=== PATIENT | female | born 1995 | race Caucasian/White ===

== ENCOUNTER 2018-10-11 05:16 | Day surgery (SDC) | payer MEDICAID ==
[2018-10-09 13:54] LABS: CLARITY,URINE CLEAR (Clear); COLOR,URINE YELLOW (Yellow); GLUCOSE, URINE NEGATIVE (Neg); KETONES,URINE NEGATIVE (Neg); LEUKOCYTE ESTERASE ,URINE SMALL (Neg); NITRITES, URINE NEGATIVE (Neg); OCCULT BLOOD,URINE MODERATE (Neg); PH,URINE 7.5 (4.8-8.0); PROTEIN,URINE NEGATIVE (Neg)
[2018-10-09 13:55] LABS: BASOPHILS # (AUTO) 0.1 X10'3 (0-0.2); EOSINOPHILS # (AUTO) 0.2 X10'3 (0-0.9); LYMPHOCYTES # (AUTO) 1.8 X10'3 (1.1-4.8); MONOCYTES # (AUTO) 0.4 X10'3 (0-0.9)
[2018-10-09 13:56] LABS: EOSINOPHILS % (AUTO) 3.8 % (0-6); LYMPHOCYTES % (AUTO) 33.8 % (21-51); MEAN CORPUSCULAR HEMOGLOBIN 24.4 PG (27.0-31.0); MEAN CORPUSCULAR VOLUME 76.3 FL (78-98); MEAN PLATELET VOLUME 10.6 FL (7.4-10.4); MONOCYTES % (AUTO) 7.6 % (2-12); NEUTROPHILS # (AUTO) 2.9 X10'3 (1.8-7.7); NEUTROPHILS % (AUTO) 52.8 % (42-75); PRE OP HEMATOCRIT 41.9 % (35.0-45.0); PRE OP HEMOGLOBIN 13.4 g/dL (12.0-16.0); PRE OP PLATELET COUNT 242 X10'3 (140-440); RED BLOOD COUNT 5.49 X10'6 (4.20-5.60); RED CELL DISTRIBUTION WIDTH 16.5 % (11.5-14.5)
[2018-10-09 13:56] LABS: UA COLLECTION TYPE CLN CATCH MIDSTREAM
[2018-10-09 14:01] LABS: ALBUMIN 4.2 G/DL (3.4-5.0); ALBUMIN/GLOBULIN RATIO 1.1 (1.1-1.5); ALKALINE PHOSPHATASE 106 IU/L (46-116); BLOOD UREA NITROGEN 12 MG/DL (7-18); BUN/CREATININE RATIO 16.4 (6.6-38.0); CALCIUM 9.4 MG/DL (8.5-10.1); CHLORIDE 103 MMOL/L (99-107); CREATININE 0.73 MG/DL (0.40-0.90); PRE OP ALT 19 U/L (30-65); PRE OP ANION GAP 10 (8-16); PRE OP AST 12 U/L (10-37); PRE OP BILIRUB, TOTAL 0.5 MG/DL (0.0-1.0); PRE OP GLUCOSE 87 MG/DL (70-104); PRE OP POTASSIUM 3.9 MMOL/L (3.4-5.1); PRE OP SODIUM 137 MMOL/L (135-145); TOTAL CARBON DIOXIDE 24.2 MMOL/L (24-32); eGFR > 90 ML/MIN
[2018-10-09 14:08] LABS: BACTERIA,URINE 4+ /HPF (Neg); RBC,URINE 0-2 /HPF (0-2); SQUAMOUS EPITHELIAL CELL,UR MANY /LPF (FEW); WBC,URINE 0-4 /HPF (0-4)
[2018-10-09 14:15] LABS: HCG SERUM QL NEGATIVE
[2018-10-09 14:33] LABS: ANISOCYTOSIS 1+; LARGE PLATELETS FEW; MICROCYTOSIS 1+; PLATELET ESTIMATE NORMAL
[2018-10-11] VITALS (10 sets, daily range): BP systolic 118–154; BP diastolic 72–86
[~2018-10-11] VITALS: Ht 170.2 cm; Wt 77.0 kg
[~2018-10-11 05:16] MED LIST: NO HOME MEDS
[2018-10-11] MEDS ORDERED: famotidine 20mg tablet PO ONE (05:30)
[2018-10-11] MEDS ORDERED: VANCOMYCIN INJ 1000 MG in NORMAL SALINE 250ml IV.SOLN IV ONE (05:30)
[2018-10-11] MEDS ORDERED: gentamicin inj 300 MG in normal saline 100ml IV soln 92.5 ML IV ONE (05:30)
[2018-10-11] MEDS ORDERED: ringers solution, lacted 1,000 ML IV SCH ×2 (05:30→07:54)
[2018-10-11] MEDS ORDERED: albuterol 2.5 MG/3 ML nebule NEB ONE (05:30)
[2018-10-11] MEDS ORDERED: LIDOcaine 1% (10mg/ml) 2ml vial ONE (06:17)
[2018-10-11] MEDS ORDERED: sevoflurane 250ml liquid IH ONE (07:16)
[2018-10-11] MEDS ORDERED: acetaminophen 1000 MG/100ml vial IV ONE (07:16)
[2018-10-11] MEDS ORDERED: propofol inj 20 ML IV ONE (07:18)
[2018-10-11] MEDS ORDERED: fentaNYL/PF 50MCG/1 ML 2ML syringe ONE (07:18)
[2018-10-11] MEDS ORDERED: midazolam 2 mg/2 ml injection ONE (07:18)
[2018-10-11] MEDS ORDERED: rocuronium 10mg/ml inj IV ONE (07:18)
[2018-10-11] MEDS ORDERED: dexamethasone sod phosphate 4mg/ml inj. ONE (07:31)
[2018-10-11] MEDS ORDERED: ondansetron/PF 4mg/2ml inj ONE (07:31)
[2018-10-11] MEDS ORDERED: morphine 4 MG/ML inj SYRINge IV PRN ×2 (07:55)
[2018-10-11] MEDS ORDERED: proCHLORperazine 10 MG/2 ml inj IV PRN (07:55)
[2018-10-11] MEDS ORDERED: ondansetron/PF 4mg/2ml inj IV PRN (07:55)
[2018-10-11] MEDS: BUPIVAcaine/PF 2.5 mg/ml (0.25%) 30ml vial ONE ×2 (07:55→07:56)
[2018-10-11] MEDS ORDERED: meperidine/PF 25mg/ml syringe IV PRN ×2 (07:55)
[2018-10-11] MEDS ORDERED: neostigmine methylsulfate 1 MG/ML 10ml vial ONE (07:57)
[2018-10-11] MEDS ORDERED: glycopyrrolate 0.2mg/ml inj ONE (07:57)
--- NOTE | 2018-10-11 08:12 | NUR ---
Received from OR via , accompanied by Anesthesiologist DR BLAIR and report given by Anesthesiolgist. AWAKENS TO VOICE. VITALS STABLE. DRESSINGS DI. PARVEZ PAIN. ABD SOFT.
[2018-10-11] MEDS: meperidine/PF 25mg/ml syringe IV PRN ×2 (08:23→08:43)
[2018-10-11] MEDS ORDERED: ketorolac trometh. 30mg/ml inj. IV ONE (08:40)
--- NOTE | 2018-10-11 09:32 | NUR ---
AWAKE AND ORIENTED. VITALS STABLE. DRESSINGS DI. STATES PAIN IMPROVING. HOME WITH A FRIEND AT THIS TIME.
== END 2018-10-11 09:32 | disposition home or self-care (01) ==
LOC: PAS 05:16
PROVIDERS: ATTEND Obstetrics & Gynecology Obstetrics
DX: Z30.2 Encounter for sterilization (principal); F41.9 Anxiety disorder, unspecified; M19.90 Unspecified osteoarthritis, unspecified site; G80.9 Cerebral palsy, unspecified; F41.8 Other specified anxiety disorders; J45.909 Unspecified asthma, uncomplicated; F32.9 Major depressive disorder, single episode, unspecified; I10 Essential (primary) hypertension; M81.0 Age-related osteoporosis without current pathological fracture; Z79.899 Other long term (current) drug therapy; Z88.0 Allergy status to penicillin; Z98.890 Other specified postprocedural states
CPT/HCPCS: 36415; 58671; 80053; 81001; 82948; 84703; 85025; 86885; 86900; 86901; 93005; A4264; J0131; J1100; J1580; J1885; J2001; J2175; J2250; J2405; J2704; J2710; J3010; J3370; J3490; A4618; A7000; J7120